=== PATIENT | male | born 1980 | race Caucasian/White ===

== ENCOUNTER 2022-07-12 02:24 | Emergency (ER) | payer BC, OTHER ==
[2022-07-12 02:34] VITALS: RESP 18; BMI 25.8
[2022-07-12] MEDS ORDERED: SODIUM PHOSPHATE/NA BIPHOS 133 ML ENEMA PR ONE (03:45)
[2022-07-12 07:04] VITALS: BP 107/61; PULSE 73; TEMP 97.3
== END 2022-07-12 07:55 ==
LOC: JER 02:24
DX: K59.00 Constipation, unspecified (principal)
CPT/HCPCS: 99283-25